=== PATIENT | female | born 1980 | race Caucasian/White ===

== ENCOUNTER 2017-11-10 10:25 | Emergency (ER) | payer OTHER ==
[~2017-11-10] VITALS: Ht 152.4 cm; Wt 67.3 kg
[2017-11-10 10:28] VITALS: BP 136/67; TEMP 98.7
[2017-11-10] MEDS ORDERED: NASACORT OTC NS (10:35)
[2017-11-10] MEDS ORDERED: ZYRTEC 10MG10 MG PO (10:35)
[2017-11-10 12:31] VITALS: PULSE 87
== END 2017-11-10 12:32 | disposition home or self-care (01) ==
LOC: COL.ER 10:25
DX: S93.401A Sprain of unspecified ligament of right ankle, initial encounter (principal); X50.1XXA Overexertion from prolonged static or awkward postures, initial encounter; Y99.0 Civilian activity done for income or pay

== ENCOUNTER 2020-04-30 10:12 | Emergency (ER) | payer OTHER ==
[~2020-04-30] VITALS: Ht 149.9 cm; Wt 63.6 kg
[~2020-04-30 10:12] MED LIST: NASACORT OTC NS; ZYRTEC 10MG10 MG PO
[2020-04-30 10:22] VITALS: TEMP 98.3
[2020-04-30 10:49] LABS: BASO # 0.1 (0.0-0.2); BASO % 0.5 % (0.0-2.0); EOS # 0.1 (0.0-0.7); EOS % 0.9 % (0-4.0); GRAN # 10.3 (1.4-6.5); GRAN % 75.2 % (42.2-75.2); HEMATOCRIT 37.9 % (37.0-47.0); HEMOGLOBIN 12.8 g/dl (12.5-16.0); LYMPH # 2.4 (1.2-3.4); LYMPH % 17.3 % (20.0-51.0); MEAN CELL VOLUME 86 fl (80.0-100.0); MEAN CORPUSCULAR HEMOGLOBIN 29 pg (27.0-31.0); MEAN CORPUSCULAR HGB CONC 34 g/dl (33.0-37.0); MEAN PLATELET VOLUME 8.7 fl (7.4-10.4); MONO # 0.8 (0.1-0.6); MONO % 5.8 % (1.7-9.3); PLATELET COUNT 351 K/mm3 (130-400); RED BLOOD COUNT 4.41 M/mm3 (4.10-5.30); REDCELL DISTRIBUTION WIDTH-CV 12.9 % (11.5-14.5)
[2020-04-30 11:00] LABS: BILIRUBIN,TOTAL 0.8 mg/dL (0.0-1.0); C-REACTIVE PROTEIN 0.9 mg/dL (0.0-0.9); CALCIUM 9.7 mg/dL (8.4-10.2); CREATININE, serum 0.58 (0.52-1.25); POTASSIUM 4.2 mmol/L (3.4-5.0); TOTAL PROTEIN 8.8 gm/dL (6.4-8.2)
[2020-04-30 11:11] LABS: COLLECTION METHOD CLEAN CATCH
[2020-04-30 11:17] LABS: MUCOUS Present /lpf; PH 5 (5-8); URINE APPEARANCE Hazy; URINE BACTERIA Rare /hpf; URINE BILIRUBIN Negative (NEGATIVE); URINE BLOOD 2+ (NEGATIVE); URINE COLOR Yellow; URINE GLUCOSE Negative (NEGATIVE); URINE KETONE Negative (NEGATIVE); URINE LEUKOCYTE ESTERASE Negative (NEGATIVE); URINE NITRATE Negative (NEGATIVE); URINE PROTEIN(semi-quant) Negative (NEGATIVE); URINE UROBILINOGEN Negative (NEGATIVE)
[2020-04-30] MEDS ORDERED: ZOFRAN 4MG T4 MG/TAB PO (12:14)
[2020-04-30 12:24] VITALS: BP 148/70; PULSE 76
== END 2020-04-30 12:25 | disposition home or self-care (01) ==
LOC: COL.ER 10:12
PROVIDERS: Nurse Practitioner Primary Care
DX: K52.9 Noninfective gastroenteritis and colitis, unspecified (principal)
CPT/HCPCS: J1885; J7030; Q9967

== ENCOUNTER → 2020-06-26 | Outpatient (CLI) | payer OTHER ==
[~2020-06-26] MED LIST changes: +COMPLETE MULTI1 TAB PO; +TYLENOL 325MG325 MG PO; +ZOFRAN 4MG T4 MG/TAB PO
== END ==
LOC: COL.RAD 06-24 10:00
DX: K52.9 Noninfective gastroenteritis and colitis, unspecified (principal); K21.9 Gastro-esophageal reflux disease without esophagitis

== ENCOUNTER → 2020-10-02 | Outpatient (CLI) | payer OTHER | LOC: COL.LAB 10:53 | DX: K52.9 Noninfective gastroenteritis and colitis, unspecified (principal) ==

== ENCOUNTER 2020-11-20 12:14 | Inpatient (IN) | payer OTHER ==
[~2020-11-20] VITALS: Ht 152.4 cm; Wt 65.0 kg
[~2020-11-20 12:14] MED LIST changes: -COMPLETE MULTI1 TAB PO; -TYLENOL 325MG325 MG PO
[2020-12-23] VITALS (12 sets, daily range): BP systolic 121–143; BP diastolic 45–75; PULSE 60–111; TEMP 98–98.6
[2020-12-23] MEDS ORDERED: COMPLETE MULTI1 TAB PO (05:58)
--- NOTE | 2020-12-23 06:15 | NUR ---
The patient ambulated back to [facility] independently using a steady gait and appeared to tolerate the activity well. Vital signs obtained. Consent signed. 18G IV started in left hand with one stick, LR infusing without difficulty. Heart Reg. Lungs clear. Bowel sounds audible. Call light is within reach. brought back to be at her bedside. The patient denies any further needs at this time. Will continue to monitor the patient.
[2020-12-23] MEDS ORDERED: TYLENOL 325MG325 MG PO (12:30)
--- NOTE | 2020-12-23 15:36 | NUR ---
Patient resting in bed. She has done well post op. Vss on room air. Sitting up trying clear liquids. Denies nausea. Chauhan to DD, positional with adequate output. Roboitc lap site dressing CDI. IVF per orders. Will monitor cloesly.
--- NOTE | 2020-12-23 18:37 | NUR ---
Patient sitting up in chair. Tolerating clears. Vss. jaya walker dd.
--- NOTE | 2020-12-23 22:00 | NUR ---
PT IS AMBULATING IN ROOM INDEPENDENTLY, HAS WALKED IN HALLWAY WITH SBA X1. PT HAS RATED PAIN 5/10, WOULD PREFER NOT TO TAKE NARCOTICS @ THIS TIME R/T CONCERN FOR NAUSEA. PT IS PLEASANT ET COOPERATIVE.
[2020-12-24 03:19] VITALS: BP 139/68; PULSE 83; TEMP 98.5
--- NOTE | 2020-12-24 06:09 | NUR ---
PT IS UP WALKING INDEPENDENTLY IN ROOM WITH NO PROBLEMS. IV WAS SALINE LOCKED DURING NIGHT, PT TOLERATING PO INTAKE WELL. PT REPORTS HAVING BM ET PASSING GAS THIS MORNING. HAS FLUSHED TOILET BUT REPORTS THAT STOOL WAS LOOSE ET RED/ORANGE IN COLOR.
[2020-12-24 06:47] LABS: BASO # 0.1 K/mm3 (0.0-0.2); BASO % 0.3 % (0.0-2.0); EOS # 0.2 K/mm3 (0.0-0.7); GRAN # 10.7 K/mm3 (1.4-6.5); GRAN % 74.8 % (42.2-75.2); HEMOGLOBIN 10.8 g/dl (12.5-16.0); LYMPH # 2.3 K/mm3 (1.2-3.4); LYMPH % 16.1 % (20.0-51.0); MEAN CELL VOLUME 92 fl (80.0-100.0); MEAN CORPUSCULAR HEMOGLOBIN 30 pg (27.0-31.0); MEAN CORPUSCULAR HGB CONC 32 g/dl (33.0-37.0); MEAN PLATELET VOLUME 8.9 fl (7.4-10.4); MONO # 1.1 K/mm3 (0.1-0.6); MONO % 7.5 % (1.7-9.3); PLATELET COUNT 317 K/mm3 (130-400); RED BLOOD COUNT 3.65 M/mm3 (4.10-5.30); REDCELL DISTRIBUTION WIDTH-CV 12.7 % (11.5-14.5)
[2020-12-24 06:49] LABS: HEMATOCRIT 33.5 % (37.0-47.0)
[2020-12-24 07:08] LABS: CREATININE, serum 0.69 mg/dL (0.57-1.11); MAGNESIUM 1.8 mg/dL (1.6-2.6); PHOSPHOROUS 2.3 mg/dL (2.3-4.7); POTASSIUM 3.2 mmol/L (3.5-4.5)
--- NOTE | 2020-12-24 08:22 | NUR ---
Pt assessment complete. Pt laying in bed upon entry, she is A/O x4. Her breathing is even and unlabored on RA. Pt had nausea earlier this AM, but it has resolved. Continues to pass some gas, but feels she has less. Encouraged patient to walk. She does not want to walk until her lake catheter is dc'd. Discussed POC with her, no needs at this time. Call light within reach.
--- NOTE | 2020-12-24 08:39 | NUR ---
Chauhan catheter removed at this time. Pt tolerated well. K pad provided.
[2020-12-24 08:55] VITALS: BP 140/70; PULSE 85; TEMP 99.2
--- NOTE | 2020-12-24 10:22 | NUR ---
jordan worker met with patient to discuss discharge plan. Patient states that she lives at home with her Cecil ([phone]) in [facility]. Patient reports that she is fully independent with her ADL's and does not utilize any DME to assist with mobility and has no O2 needs. PCP is Dr. Ramirez and she utilizes [facility] for perscriptions with no cost difficulty. Patient reports that she does not have a DPOA-HC established and is not interested in establishing one at this time. Education provided and patient verbalizes her understanding. Patient's plan is to return home post dc. Discharge plan: Home with spouse
[2020-12-24 12:55] VITALS: BP 134/65; PULSE 90; TEMP 98.1
--- NOTE | 2020-12-24 13:16 | NUR ---
First visit from the cloth cutter. No needs right now.
[2020-12-24 16:09] VITALS: BP 135/74; PULSE 103; TEMP 98.3
--- NOTE | 2020-12-24 18:30 | NUR ---
Pt tolerating full liquid diet well. Pain minimal, controlled with scheduled meds. Nausea minimal. Has had several soft/loose BM's today. K pad in place to abdomen as needed. Call light within reach.
[2020-12-24 19:25] VITALS: BP 134/63; PULSE 85; TEMP 98.1
--- NOTE | 2020-12-24 20:00 | NUR ---
PATIENT IS ALERT AND PARTIALLY ORIENTED. PATIENT IS CONFUSED BUT ORIENTED TO SELF. PATIENT HAS AQUACELL TO LEFT HIP. CDI. PATIENT HAS SANDERS WITH YELLOW AND CLEAR OUTPUT. PATIENT ON CLEAR DIET. PATIENT HAS TEDS AND SCDS TO BILATERAL LOWER EXTREMITIES. PATIENT HAS ICE TO LEFT HIP. PATIENT IS 2 ASSIST WITH WALKER. PATIENT COMPLAINING OF 10/10 PAIN. PAIN MEDS GIVEN AND PATIENT REPOSITIONED. PATIENT GIVEN WARM BLANKET AND ICE WATER. PATIENT DENIES FURTHER NEEDS AT THIS TIME. CALL LIGHT WITHIN REACH. HEAD TO TOE ASSESSMENT COMPLETE.
--- NOTE | 2020-12-24 20:45 | NUR ---
PATIENT STATES THE PAIN IS GETTING BETTER. SHE IS ASLEEP OFF AND ON.
[2020-12-24 23:56] VITALS: BP 142/71; PULSE 74; TEMP 98.1
[2020-12-25 03:47] VITALS: BP 135/72; PULSE 72; TEMP 98.5
--- NOTE | 2020-12-25 06:05 | NUR ---
PATIENT SLEPT THROUGH NIGHT. GIVEN PAIN MEDS PER ORDERS. PATIENT STATES SHE FEELS GOOD THIS MORNING. WILL REPORT TO DAYSHIFT.
[2020-12-25 06:37] LABS: BASO % 0.3 % (0.0-2.0); EOS # 0.3 K/mm3 (0.0-0.7); EOS % 2.4 % (0-4.0); GRAN # 8.4 K/mm3 (1.4-6.5); GRAN % 73.2 % (42.2-75.2); LYMPH # 1.9 K/mm3 (1.2-3.4); LYMPH % 16.5 % (20.0-51.0); MEAN CELL VOLUME 89 fl (80.0-100.0); MEAN CORPUSCULAR HEMOGLOBIN 30 pg (27.0-31.0); MEAN CORPUSCULAR HGB CONC 33 g/dl (33.0-37.0); MEAN PLATELET VOLUME 8.8 fl (7.4-10.4); MONO # 0.8 K/mm3 (0.1-0.6); MONO % 7.2 % (1.7-9.3); PLATELET COUNT 302 K/mm3 (130-400); RED BLOOD COUNT 3.38 M/mm3 (4.10-5.30); REDCELL DISTRIBUTION WIDTH-CV 12.6 % (11.5-14.5)
[2020-12-25 06:49] LABS: HEMATOCRIT 30.1 % (37.0-47.0)
[2020-12-25 06:53] LABS: ALBUMIN 3.4 gm/dL (3.5-5.0); BILIRUBIN,TOTAL 0.5 mg/dL (0.2-1.2); CALCIUM 9.1 mg/dL (8.4-10.2); CREATININE, serum 0.61 mg/dL (0.57-1.11); POTASSIUM 3.2 mmol/L (3.5-4.5); TOTAL PROTEIN 6.4 gm/dL (6.2-8.1)
[2020-12-25 07:23] VITALS: BP 128/72; PULSE 77; TEMP 98.5
--- NOTE | 2020-12-25 08:00 | NUR ---
Patient sitting up in bed, A&Ox4. VSS. IV CDI. Denies pain and discomfort. Lap sites CDI. Breakfast tray shane in and pu on bedside table. No further needs expressed. Call light within reach
[2020-12-25 11:25] VITALS: BP 139/78; PULSE 87; TEMP 98.7
--- NOTE | 2020-12-25 14:00 | NUR ---
Discharge paperwork reviewed with the patient. Patient verbalized an understanding to follow doctors orders. IV removed, tip intact. No further needs expressed. Patient ambulated independently to the ED entrance
== END 2020-12-25 14:00 | disposition home or self-care (01) | DRG 331 ==
LOC: INPTSU 12-23 05:35 → SURG 12-23 05:35
PROVIDERS: Urology; ADMIT Surgery
PROC: 0TJB8ZZ Inspection of Bladder, Via Natural or Artificial Opening Endoscopic (ICD-10-PCS; 2020-12-23)
PROC: 0DTH4ZZ Resection of Cecum, Percutaneous Endoscopic Approach (ICD-10-PCS; principal; 2020-12-23 07:30)
PROC: 8E0W4CZ Robotic Assisted Procedure of Trunk Region, Percutaneous Endoscopic Approach (ICD-10-PCS; 2020-12-23 07:30)
DX: K50.012 Crohn's disease of small intestine with intestinal obstruction (principal); D64.9 Anemia, unspecified; E87.6 Hypokalemia
CPT/HCPCS: A4314; A9284; J0690; J1170; J1650; J2405; J2550; J2704; J2710; J2795; J3010; J7120